=== PATIENT | male | born 1975 | race Caucasian/White ===

== ENCOUNTER 2018-05-31 09:15 | Emergency (ER) | payer BC, SELFPAY ==
[2018-05-31 09:23] VITALS: BP 125/79; PULSE 63; RESP 18; TEMP 36.8; O2SAT 95
--- NOTE | 2018-05-31 11:07 | W.ED.GENAD ---
Discharge Plan Disposition Patient Disposition: HOME Condition: Fair Discharge Details Chief Complaint: Orthopedic Clinical Impression: Muscle spasm, Muscle strain Primary Care Provider: Kasie Booth ED Provider: Briana Swain Home Meds and New Rx's Prescriptions: New cyclobenzaprine 10 mg tablet 10 mg PO TID PRN (Reason: muscle spasm) Qty: 10 RF: 0 Continue elastic stockings 2 u Miscellaneous DAILY Qty: 2 RF: 1 Discharge Instructions Instructions: Muscle Strain (ED), Muscle Spasm (ED) Additional Instructions: Encourage rest, ice, elevation. Tylenol and/or ibuprofen as needed for discomfort. May take 1000 mg of Tylenol every 6 hours, do not exceed 4000 mg. May take your 800 mg tablets of ibuprofen 3 times daily. Take Flexeril as prescribed for muscle spasm, do not drive while taking this medication. Please contact orthopedics today to schedule follow-up. Please contact physical therapy to schedule appointment. Continue to massage the area. You may find that your compression hose are of benefit. Please perform ankle pumps as discussed. Heat may also help with muscle spasm. Continue with crutches until reevaluated by orthopedics. If you develop new or worsening symptoms please seek care urgently once again Stand Alone Forms: Physical Therapy Referral, Work Release Referrals: Vinny Cantrell MD [ [facility] STAFF PHYSICIAN] - 1 week (Please call for appointment [phone]) Discharge Data Discharge Date/Time-TO BE ENTERED AT DEPARTURE: 05/31/18 11:22 Medical Decision Making [facility] Narrative Medical decision making narrative: Patient presents today chief complaint of posterior calf pain. On exam, the gastric is noted to be quite tense. There is no palpable deformity. No ecchymosis. No swelling or signs of trauma. No pain anteriorly. No pain on palpation of the Achilles. Negative Medel test. Negative Kentrell's sign. Good range of motion of the knee and the ankle. No evidence of hamstring rupture. No evidence of rupture of the proximal gastroc. He has good flexion, extension against resistance on exam both the hip, knee and ankle. Neurologic sensation. At this point, his exam leads more towards muscle strain and spasm. I am not able to appreciate any signs of rupture. Patient did not initially have fall or head trauma, I do not see any evidence of fracture. Patient does have notable varicosities but history and exam is not consistent with DVT. As this came on suddenly with a 'pop' while running, this sounds to be more musculoskeletal in nature. Patient is questioning if he may have an MRI, advised this would need to be ordered through orthopedics or primary care. Patient will contact orthopedics to schedule follow-up. Encouraged rest, ice, elevation. Advised to continue with massage. Advised that he may also be of benefit. Encouraged ankle problems if he wear his compressive socks. With the manner in which he is preferring to hold his lower extremity I did not feel that we have a immobilization device that will help with his discomfort. We discussed new/worsening symptoms once he can urgently once again. He will contact physical therapy and orthopedics a day. I will prescribe Flexeril to help with muscle spasm. Advised that he continue with ibuprofen. He reports that he is 800 mg tablets at home. He has not been taking this as he is not having pain when nonweightbearing. Advised this may help with inflammation. All his questions and concerns were addressed and he is in agreement this plan HPI - General Adult General Date/Time Provider Initiated Documentation: 05/31/18 10:18. Limitations to Documentation: no limitations. Information obtained by: patient. HPI Narrative: Patient is a 42-year-old male presenting today with chief complaint of left calf pain. He reports that yesterday, while running from a base playing softball, he felt a sudden pop. It initially thought that he had been struck by the ball to the posterior aspect of his calf. He indicates the area of the medial gastroc is area of maximal discomfort. He had been concerned initially that he had ruptured his Achilles. However, he reports that he was able to palpate the Achilles he does not have any pain over this area. He has not been able to weight-bear since the time of the incident. Has been ambulating with crutches. Try to elevate massage last night. He does report that the massage did offer temporary relief. Is preferring to hold the toe in a flexed position of the lower extremity is able to dangle forward. States he has no pain when he is not trying to weight-bear. He was able to ambulate off the field initially, the inability to bear weight began this morning. Denies other injury at the time of the incident. Denies any altered sensation. Patient does have history of varicosities in the lower extremities. Does wear compressive socks daily. Reports that he has had multiple episodes of muscle tears in the past. It was a typically quite good with stretching prior to sporting events but states that he did not do this yesterday Related Data Previous Rx's Medication Instructions Recorded cyclobenzaprine 10 mg PO TID PRN #10 tab 05/31/18 Allergies Allergy/AdvReac Type Severity Reaction Status Date / Time environmental Allergy Unknown Uncoded 05/31/18 09:25 General Stated Complaint: Orthopedic PROSPER: 3 Review of Systems Constitutional Denies chills and Denies fever(s) Cardiovascular Denies chest pain and Denies dyspnea Respiratory Denies cough and Denies dyspnea Musculoskeletal Reports as per HPI Integumentary/Breasts Reports as per HPI Neurologic Reports as per HPI PFSH Family History Mother No problems noted. Father RA (rheumatoid arthritis) Heart disease Social History Smoking/Tobacco Use Status: Never Exam Const General: cooperative, healthy appearing, comfortable, no acute distress and well developed Nutritional Appearance: average body habitus Orientation: alert Eyes General: appearance normal, both eyes and all related structures Resp Effort & Inspection: normal respiratory effort, able to speak in complete sentences and no respiratory distress Auscultation: clear to auscultation bilaterally Cardio Rate: regular rate Rhythm: regular rhythm Heart Sounds: S1 normal and S2 normal Skin General skin exam: no rashes or lesions noted Lesions: no lesions Rashes: no rashes Trauma: no lacerations or abrasions Wounds: no wounds Neuro General: alert and awake Cognition: normal cognition Speech: speech normal Gait: gait abnormal (Patient is ambulating with crutches at this time) Motor: muscle tone normal throughout and strength 5/5 throughout Sensory Exam: no sensory deficits noted Extrem General: abnormal to inspection, full ROM, normal capillary refill, no pedal edema, calf tenderness (as above), no edema and no pedal edema Left lower extremity: normal to inspection, full ROM and normal capillary refill; no cyanosis and no edema Course Vital Signs Temperature 36.8 C 05/31/18 09:23 Pulse 63 05/31/18 09:23 Respiratory Rate 18 05/31/18 09:23 Blood Pressure 125/79 05/31/18 09:23 Pulse Oximetry 95 05/31/18 09:23 Temperature 36.8 C 05/31/18 09:23 Pulse 63 05/31/18 09:23 Respiratory Rate 18 05/31/18 09:23 Blood Pressure 125/79 05/31/18 09:23 Pulse Oximetry 95 05/31/18 09:23
--- NOTE | 2018-05-31 11:20 | ED.GENADUL_ITS ---
Discharge Plan Disposition Patient Disposition: HOME Condition: Fair Discharge Details Chief Complaint: Orthopedic Clinical Impression: Muscle spasm, Muscle strain Primary Care Provider: Kasie Booth ED Provider: Briana Swain Home Meds and New Rx's Prescriptions: New cyclobenzaprine 10 mg tablet 10 mg PO TID PRN (Reason: muscle spasm) Qty: 10 RF: 0 Continue elastic stockings 2 u Miscellaneous DAILY Qty: 2 RF: 1 Discharge Instructions Instructions: Muscle Strain (ED), Muscle Spasm (ED) Additional Instructions: Encourage rest, ice, elevation. Tylenol and/or ibuprofen as needed for discomfort. May take 1000 mg of Tylenol every 6 hours, do not exceed 4000 mg. May take your 800 mg tablets of ibuprofen 3 times daily. Take Flexeril as prescribed for muscle spasm, do not drive while taking this medication. Please contact orthopedics today to schedule follow-up. Please contact physical therapy to schedule appointment. Continue to massage the area. You may find that your compression hose are of benefit. Please perform ankle pumps as discussed. Heat may also help with muscle spasm. Continue with crutches until reevaluated by orthopedics. If you develop new or worsening symptoms please seek care urgently once again Stand Alone Forms: Physical Therapy Referral, Work Release Referrals: Vinny Cantrell MD [ [facility] STAFF PHYSICIAN] - 1 week (Please call for appointment [phone]) Discharge Data Discharge Date/Time-TO BE ENTERED AT DEPARTURE: 05/31/18 11:22 Medical Decision Making [facility] Narrative Medical decision making narrative: Patient presents today chief complaint of posterior calf pain. On exam, the gastric is noted to be quite tense. There is no palpable deformity. No ecchymosis. No swelling or signs of trauma. No pain anteriorly. No pain on palpation of the Achilles. Negative Medel test. Negative Kentrell's sign. Good range of motion of the knee and the ankle. No evidence of hamstring rupture. No evidence of rupture of the proximal gastroc. He has good flexion, extension against resistance on exam both the hip , knee and ankle. Neurologic sensation. At this point, his exam leads more towards muscle strain and spasm. I am not able to appreciate any signs of rupture. Patient did not initially have fall or head trauma, I do not see any evidence of fracture. Patient does have notable varicosities but history and exam is not consistent with DVT. As this came on suddenly with a 'pop' while running, this sounds to be more musculoskeletal in nature. Patient is questioning if he may have an MRI, advised this would need to be ordered through orthopedics or primary care. Patient will contact orthopedics to schedule follow-up. Encouraged rest, ice, elevation. Advised to continue with massage. Advised that he may also be of benefit. Encouraged ankle problems if he wear his compressive socks. With the manner in which he is preferring to hold his lower extremity I did not feel that we have a immobilization device that will help with his discomfort. We discussed new/worsening symptoms once he can urgently once again. He will contact physical therapy and orthopedics a day. I will prescribe Flexeril to help with muscle spasm. Advised that he continue with ibuprofen. He reports that he is 800 mg tablets at home. He has not been taking this as he is not having pain when nonweightbearing. Advised this may help with inflammation. All his questions and concerns were addressed and he is in agreement this plan HPI - General Adult General Date/Time Provider Initiated Documentation: 05/31/18 10:18 . Limitations to Documentation: no limitations . Information obtained by: patient . HPI Narrative: Patient is a 42-year-old male presenting today with chief complaint of left calf pain. He reports that yesterday, while running from a base playing softball, he felt a sudden pop. It initially thought that he had been struck by the ball to the posterior aspect of his calf. He indicates the area of the medial gastroc is area of maximal discomfort. He had been concerned initially that he had ruptured his Achilles. However, he reports that he was able to palpate the Achilles he does not have any pain over this area. He has not been able to weight-bear since the time of the incident. Has been ambulating with crutches. Try to elevate massage last night. He does report that the massage did offer temporary relief. Is preferring to hold the toe in a flexed position of the lower extremity is able to dangle forward. States he has no pain when he is not trying to weight-bear. He was able to ambulate off the field initially, the inability to bear weight began this morning. Denies other injury at the time of the incident. Denies any altered sensation. Patient does have history of varicosities in the lower extremities. Does wear compressive socks daily. Reports that he has had multiple episodes of muscle tears in the past. It was a typically quite good with stretching prior to sporting events but states that he did not do this yesterday Related Data Previous Rx's Medication Instructions Recorded cyclobenzaprine 10 mg PO TID PRN #10 tab 05/31/18 Allergies Allergy/AdvReac Type Severity Reaction Status Date / Time environmental Allergy Unknown Uncoded 05/31/18 09:25 General Stated Complaint: Orthopedic PROSPER: 3 Review of Systems Constitutional Denies chills and Denies fever(s) Cardiovascular Denies chest pain and Denies dyspnea Respiratory Denies cough and Denies dyspnea Musculoskeletal Reports as per HPI Integumentary/Breasts Reports as per HPI Neurologic Reports as per HPI PFSH Family History Mother No problems noted. Father RA (rheumatoid arthritis) Heart disease Social History Smoking/Tobacco Use Status: Never Exam Const General: cooperative, healthy appearing, comfortable, no acute distress and well developed Nutritional Appearance: average body habitus Orientation: alert Eyes General: appearance normal, both eyes and all related structures Resp Effort & Inspection: normal respiratory effort, able to speak in complete sentences and no respiratory distress Auscultation: clear to auscultation bilaterally Cardio Rate: regular rate Rhythm: regular rhythm Heart Sounds: S1 normal and S2 normal Skin General skin exam: no rashes or lesions noted Lesions: no lesions Rashes: no rashes Trauma: no lacerations or abrasions Wounds: no wounds Neuro General: alert and awake Cognition: normal cognition Speech: speech normal Gait: gait abnormal (Patient is ambulating with crutches at this time) Motor: muscle tone normal throughout and strength 5/5 throughout Sensory Exam: no sensory deficits noted Extrem General: abnormal to inspection, full ROM, normal capillary refill, no pedal edema, calf tenderness (as above), no edema and no pedal edema Left lower extremity: normal to inspection, full ROM and normal capillary refill ; no cyanosis and no edema Course Vital Signs Temperature 36.8 C 05/31/18 09:23 Pulse 63 05/31/18 09:23 Respiratory Rate 18 05/31/18 09:23 Blood Pressure 125/79 05/31/18 09:23 Pulse Oximetry 95 05/31/18 09:23 Temperature 36.8 C 05/31/18 09:23 Pulse 63 05/31/18 09:23 Respiratory Rate 18 05/31/18 09:23 Blood Pressure 125/79 05/31/18 09:23 Pulse Oximetry 95 05/31/18 09:23
== END 2018-05-31 11:22 | disposition home or self-care (01) ==
PROVIDERS: Emergency Provider Physician Assistant; PCP Nurse Practitioner
DX: S86.912A Strain of unspecified muscle(s) and tendon(s) at lower leg level, left leg, initial encounter (principal); X50.1XXA Overexertion from prolonged static or awkward postures, initial encounter; Y93.64 Activity, baseball
CPT/HCPCS: 99283

== ENCOUNTER 2020-03-19 09:12 | Outpatient (REF) | payer BC, SELFPAY ==
[2020-03-19 16:36] LABS: Calculated LDL 95 mg/dL (<100); Cholesterol 171 mg/dL (<200); Glucose 97 mg/dL (74-106); HDL Cholesterol 48 mg/dL (40-60); Triglyceride 142 mg/dL (<150)
== END 2020-03-19 09:32 ==
LOC: NCHCN 09:12
PROVIDERS: PCP Nurse Practitioner; Visit Provider Nurse Practitioner
DX: Z00.00 Encounter for general adult medical examination without abnormal findings (principal); Z13.1 Encounter for screening for diabetes mellitus; Z13.220 Encounter for screening for lipoid disorders
CPT/HCPCS: 80061; 82947

== ENCOUNTER 2022-08-04 16:47 | Outpatient (REF) | payer BC, SELFPAY ==
[2022-08-04 15:35] LABS: Anion Gap 6.5 mmol/L (3-11); BUN 12 mg/dL (7-18); CO2 29.5 mmol/L (21.0-32.0); CREATININE 0.7 mg/dL (0.70-1.30); Calculated LDL 108 mg/dL (<100); Chloride 104 mmol/L (98-107); Cholesterol 177 mg/dL (<200); Estimated GFR 116.52 (mL/min/1.73m2); Glucose 96 mg/dL (74-106); HDL Cholesterol 57 mg/dL (40-60); Potassium 3.9 mmol/L (3.5-5.1); Sodium 140 mmol/L (136-145); Triglyceride 63 mg/dL (<150)
== END 2022-08-04 16:48 | disposition home or self-care (01) ==
LOC: NCHCN 16:47
PROVIDERS: PCP Nurse Practitioner; Visit Provider Physician Assistant
DX: Z00.00 Encounter for general adult medical examination without abnormal findings (principal)
CPT/HCPCS: 80048; 80061

== ENCOUNTER 2022-11-06 12:44 | Outpatient (CLI) | payer BC, SELFPAY ==
--- NOTE | 2022-11-06 | DI.RAD_ITS ---
Exam(s) XR HAND RT COMPLETE EXAM: XR HAND RT COMPLETE CLINICAL HISTORY: HAND PAIN RT, ICD -M79.641. TECHNIQUE: 2D digital imaging was performed. COMPARISON: No exams were available for comparison FINDINGS: 3 views No evidence of fracture nor subluxation. Bone density normal. No osseous lesions nor erosions. No radiopaque foreign body. IMPRESSION: No significant osseous findings. DATA REPOSITORY: RADIATION DOSE DELIVERED:
--- NOTE | 2022-11-06 | DI.RAD_ITS ---
Exam(s) XR WRIST RT COMPLETE EXAM: XR WRIST RT COMPLETE CLINICAL HISTORY: RT WRIST PAIN, ICD -M25.531. TECHNIQUE: 2D digital imaging was performed. COMPARISON: No exams were available for comparison FINDINGS: 3 views No evidence of fracture or dislocation nor significant ulnar variance. Scaphoid and scapholunate dis tance normal. Bone density normal. No osseous lesions. No erosions. IMPRESSION: No significant osseous findings. DATA REPOSITORY: RADIATION DOSE DELIVERED:
--- NOTE | 2022-11-06 13:14 | DI.VRAD_ITS ---
PROCEDURE INFORMATION: Exam: XR Right Hand Exam date and time: 11/06/2022 1:01 PM Age: 47 years old Clinical indication: Pain; Other: Right hand x2 weeks TECHNIQUE: Imaging protocol: Radiologic exam of the Right hand. Views: 3 or more views. COMPARISON: No relevant prior studies available. FINDINGS: Bones/joints: Normal. Soft tissues: Normal. IMPRESSION: No acute findings. Dictated and Authenticated by: Praveen Deluna MD. Ordering:SHAMIR Lu MD
--- NOTE | 2022-11-06 13:14 | DI.VRAD_ITS ---
PROCEDURE INFORMATION: Exam: XR Right Wrist Exam date and time: 11/06/2022 1:03 PM Age: 47 years old Clinical indication: Wrist and other: RT wrist pain; Right TECHNIQUE: Imaging protocol: Radiologic exam of the Right wrist. Views: 3 or more views. COMPARISON: CR XR HAND RT COMPLETE 11/06/2022 1:01 PM FINDINGS: Bones/joints: Normal. Soft tissues: Normal. IMPRESSION: No acute findings. Dictated and Authenticated by: Praveen Deluna MD. Ordering:SHAMIR Lu MD
== END 2022-11-06 13:04 ==
PROVIDERS: PCP Nurse Practitioner; Visit Provider Physician Assistant Medical
DX: M25.531 Pain in right wrist (principal); M79.641 Pain in right hand
CPT/HCPCS: 73110; 73130

== ENCOUNTER 2025-07-18 08:28 | Day surgery (SDC) | payer BC, SELFPAY ==
[2025-07-18 08:40] VITALS: BP 150/87; PULSE 64; RESP 12; TEMP 36.3; O2SAT 96
--- NOTE | 2025-07-18 08:52 | W.ANESPRE ---
General Info Date of Service Date Performed: 07/18/25 Height: 5 ft 9 in Weight: 87 kg Body Mass Index (BMI): 28.3 Surgical Procedure: Operation Date: 07/18/25 09:50 Proposed Procedure Side Surgeon callie Oden MD Meds Allergies and Home Medications Allergies Allergy/AdvReac Type Severity Reaction Status Date / Time environmental Allergy Unknown Unknown Uncoded 07/18/25 08:36 Home Medication ?Medication ?Instructions ?Recorded sildenafil 100 mg tablet 100 mg PO DAILY PRN sexual 02/23/19 activity #10 tabs cetirizine 10 mg capsule (Zyrtec) 10 mg PO DAILY PRN 06/22/23 bisacodyl 5 mg tablet,delayed 5 mg PO ONCE #4 tabs 07/04/25 release (Dulcolax (bisacodyl)) polyethylene glycol 3350 17 17 g PO ONCE #238 grams 07/04/25 gram/dose oral powder Current Visit Medications: Current Medications Generic Name Dose Route Start Last Admin Trade Name Freq PRN Reason Stop Dose Admin Ringer's Solution 1,000 mls @ 80 mls/hr 07/18/25 06:00 IV 07/18/25 23:59 INFUSION JAROD IV Miscellaneous Supplies 1 each 07/18/25 06:00 Iv Access IV 07/18/25 23:59 DIRECTED JAROD Sodium Biphosphate/Sodium Phosphate 133 ml 07/18/25 06:00 Na Phosphate Enema-Adult 133 Ml Btl KS 07/18/25 23:59 DIRECTED PRN Sodium Chloride 0 ml 07/18/25 06:00 Normal Saline Flush 10 Ml Syr IV 07/18/25 23:59 PRN PRN Sodium Chloride 0 ml 07/18/25 06:00 Normal Saline 10 Ml Vial IJ 07/18/25 23:59 DIRECTED PRN Sterile Water 0 ml 07/18/25 06:00 Water,Injection,Sterile 10 Ml Vial IJ 07/18/25 23:59 DIRECTED PRN PFSH Active Problems Active Problems: Problem Status Onset Code Impingement syndrome of right shoulder Acute M75.41 Hemorrhoids Acute K64.9 Varicose veins of both lower extremities Acute I83.93 Insect bite Acute W57.XXXA Contusion of right hand Acute S60.221A Wrist pain Acute M25.539 Routine/ritual circumcision Acute Z41.2 Gastrocnemius strain, left Acute S86.112A Varicose veins of bilateral lower extremities with pain Chronic 03/15/16 I83.813 Lumbago Acute 01/04/13 M54.5 Cyst of epididymis Acute 01/04/13 N50.3 Allergic rhinitis Acute 01/04/13 J30.9 Medical History Medical History Cannabis dependence Erectile dysfunction Impacted cerumen of both ears Overweight Sebaceous cyst Tobacco Smoking/Tobacco Use Status: Never Alcohol Alcohol Intake: current Alcohol intake frequency: 0-2 drinks per day Alcohol type: beer Substance Use Substance use: Daily Substance use type: marijuana Details: inhaled; twice weekly, last use 07/13/25. Vital Signs and Lab Results Vital Signs Most Recent Vital Signs in EMR: Most Recent Vital Signs Temp Pulse Resp BP Pulse Ox 36.3 C L 64 12 150/87 H 96 07/18/25 08:40 07/18/25 08:40 07/18/25 08:40 07/18/25 08:40 07/18/25 08:40 Anesthesia Assessment and Plan Anesthesia History Personal History: No History of Anesthesia Complications Family History: No Family History of Anesthesia Complications Exercise Tolerance Exercise Tolerance: Metabolic Equivalents>4 Cardiac & Pulmonary Exam Cardiac Exam: Normal S1/S2 Heart Sounds Pulmonary Exam: Clear Bilateral Breath Sounds Implantable Cardiac Device Does patient have a Pacemaker or an ICD?: No Airway Exam Known Difficult Airway: No Mallampati Class: 3 Mouth Opening: Narrow (< 3cm) Thyromental Distance: Greater than 3 cm Neck Range of Motion: Full ROM Neck Circumference: Normal Teeth Condition: Normal Dentition ASA Classification ASA Score: ASA 2 Emergency Case?: No NPO Status NPO Status: NPO Clears >2 hours, Solids >8 hours Anesthesia Plan Resuscitation Status: Full Code Anesthesia Technique: General Anesthesia Airway Planned: Natural Airway Monitors Used: Standard Monitors Preoperative Comments:: 49 yo for colo. Sig PMHx: denies major. Never smoker, occ EtOH/cannabis.
[2025-07-18 08:55] VITALS: BMI 28.3
[2025-07-18] MEDS: Lactated Ringers 1,000 ML 80 ML IV (09:02)
--- NOTE | 2025-07-18 09:42 | BOWEL_PTH ---
PATIENT: Facundo Guaman LOC: [facility] U#:[id number] AGE/SX: 49/M ROOM: RE07/18/[address]: Gloria Oden MD : [id number] BED: DIS: 07/18/2025 SPEC #: [id number] RECD: 07/18/25 12:45 STATUS: GAIL REQ #: [id number] MARYANA: 07/18/25 09:[address]: Gloria Oden DEPT: Surgical Specimen RECD BY: Carey Vallecillo ENTERED: 07/18/25 12:46 SP TYPE: Bowel OTHR DR: Keagan Russo Tissues: 1 - BIOPSY BOWEL Procedures: GROSS AND MICRO LEVEL 4 Comments: [id number]
--- NOTE | 2025-07-18 09:46 | W.PM.DSUDISC ---
Date of service: 07/18/25 Discharge Plan Disposition Patient Disposition: Home Condition: Stable Discharge Details Attending Provider: Gloria Oden Primary Care Provider: Keagan Russo Home Meds and New Rx's Prescriptions: Continued sildenafil 100 mg tablet 100 mg PO DAILY PRN (Reason: sexual activity) Qty: 10 12RF Rx Instructions: administer 30 minutes to 4 hours before activity Zyrtec 10 mg capsule 10 mg PO DAILY PRN elastic stockings 2 u Miscellaneous DAILY Qty: 2 1RF Rx Instructions: bilateral knee high Jobst type Discontinued bisacodyl [Dulcolax (bisacodyl)] 5 mg tablet,delayed release (DR/EC) 5 mg PO ONCE Qty: 4 0RF Rx Instructions: Take per colonoscopy instructions provided by ordering providers office polyethylene glycol 3350 17 gram/dose powder 17 g PO ONCE Qty: 238 0RF Rx Instructions: Take per colonoscopy instructions provided by ordering providers office Discharge Instructions Additional Instructions: One tiny polyp seen and removed from descending colon (left side of the colon). Timing of next colonoscopy will depend on what kind of polyp this turns out to be. If it is a hyperplastic polyp, you will get to go ten years until your next colonoscopy. If it is an adenoma polyp, you will need a colonoscopy in 5 years. If it is a serrated polyp, you will need another in 3 years. I will send you a letter in the mail with your results. Stand Alone Forms: Anesthesia Discharge InstMillicent, Kathy Marshall (DSU) Activity:: Activity as Tolerated Diet:: As Tolerated Discharge Orders Discharge Orders: Discharge Order (Routine); Ordered 07/18/25 Ordered By: Gloria Oden DS: Diagnosis Discharge Diagnosis (1) Screening for colorectal cancer: Status: Acute (2) Polyp of descending colon: Status: Acute
--- NOTE | 2025-07-18 09:48 | W.COLOREPORT ---
Date of service: 07/18/25 Time of Service: 09:48 Colonoscopy Report Pre-op diagnosis general: Screening for colorectal cancer Post-op diagnosis procedure note: same Procedure: Colonoscopy Surgeon: Gloria Oden Anesthesia Type: General:No Airway Estimated blood loss (mL): 1 Pathology: other (descending colon polyp) Complications: None Indications: screening for colorectal cancer Prep: Miralax/Dulcolax (good) Procedure Description: Informed consent was obtained and the patient was taken to the procedure area. The patient was placed in left lateral decubitus position on the procedure table. Timeout was performed. Anesthesia was induced. A lubricated colonoscope was inserted through the anus and passed to the cecum. The cecum was identified by the ileocecal valve and the appendiceal orifice. The scope was then slowly withdrawn and the colonic and rectal mucosa examined. Descending colon polyp 3mm, sessile, excised with cold forceps. No diverticulosis was seen. The scope was retroflexed in the anorectal junction examined. Uncomplicated internal hemorrhoids present. Assessment and plan: Colorectal cancer screening Descending colon polyp Timing of next colonoscopy will depend on path of excised polyp.
[2025-07-18 09:53] VITALS: BP 133/85; PULSE 71; RESP 16; TEMP 36.4; O2SAT 96
--- NOTE | 2025-07-18 10:10 | W.ANESPOSTOP ---
Postoperative Evaluation Date, Time and Location Date Performed: 07/18/25 Time Performed: 09:53 Patient Location: Day Surgery Unit Vital Signs Most Recent Imported Vital Signs: Most Recent Vital Signs Temp Pulse Resp BP Pulse Ox 36.4 C L 71 16 133/85 96 07/18/25 09:53 07/18/25 09:53 07/18/25 09:53 07/18/25 09:53 07/18/25 09:53 Pain Score Most Recent Pain Score: Most Recent Pain Score Pain Level 0 07/18/25 09:53 Assessment Mental Status: Awake (Alert & Oriented to Patient Baseline) Airway and Respiratory Function: Patent airway with normal (patient baseline) respiratory exam Cardiovascular Function: Hemodynamically Stable Hydration Status: Adequately Hydrated Nausea & Vomiting: No Nausea or Vomiting Pain: Pt. Denies Any Pain Peripheral Nerve Block: Patient did not receive a nerve block
[2025-07-18 10:16] VITALS: BP 137/94; PULSE 56; RESP 16; TEMP 36.5; O2SAT 97
== END 2025-07-18 10:30 | disposition home or self-care (01) ==
LOC: SUR 08:29
PROVIDERS: PCP Physician Assistant; Visit Provider Surgery
PROC: 0DJD8ZZ Inspection of Lower Intestinal Tract, Via Natural or Artificial Opening Endoscopic (ICD-10-PCS; CPT 45378; principal; 2025-07-18 09:45)
DX: Z12.11 Encounter for screening for malignant neoplasm of colon (principal); Z12.12 Encounter for screening for malignant neoplasm of rectum; K63.5 Polyp of colon; K63.89 Other specified diseases of intestine
CPT/HCPCS: 45380; 88305; J2003; J2704